=== PATIENT | female | born 1995 | race Caucasian/White ===

== ENCOUNTER 2016-09-09 17:45 | Emergency (ER) | payer SELFPAY ==
[2016-09-09 17:51] VITALS: BP 107/73; BMI 24.7
--- NOTE | 2016-09-09 18:31 | DR.GENAD ---
HPI - PCP Primary Care Physician: RAVEN - HPI Comment HPI Comment: HISTORY BELOW. - Complaint/Symptoms Chief Complaint Doctors Comments: MOUTH PAIN. PATIENT DIAGNOSE WITH GUM DISEASE WHICH IS GETTING WORSE, SOB TODAY AND SHAKY. NO FEVER. TRISMUS NOTED BUT RESOVED. Chief Complaint:: PT. C/O MOUTH PAIN X 2 WEEKS. PT. C/O SHORTNESS OF BREATH, SHAKINESS, AND HEADACHES. PT. SAYS THAT HER FACE WAS SWOLLEN LAST SATURDAY BUT IT THEN SUBSIDED. PT. ALSO SAYS THAT SHE WAS HAVING DIFFICULTY OPENING HER MOUTH AT ONE POINT. - Nurses notes reviewed Nurses Notes Review: Yes - Source History Provided: Patient - Mode of Arrival Mode of Arrival: Ambulatory - Timing Onset of Chief Complaint: 08/26/16 Came on: Gradually - Duration Duration: Constant Duration: Weeks - Severity Severity: Moderate PMH - PMH Past Medical History: No Past Surgical History: No Surgical History: No History - Family History History of Family Medical Conditions: No - Social History Does patient currently use any type of tobacco product: No Have you used tobacco products in the last 12 months: No Type of Tobacco Use: None Does any household member use tobacco: No Alcohol Use: None Do you use any recreational Drugs:: No Lives With: Spouse Lives Where: Home - infectious screening In the last 2 months have you had wt loss of >10#?: NO Have you had fever, night sweats or hemotysis?: No Have you traveled outside the country in the last 6 months?: No Isolation: Standard ROS - Review of Systems Constitutional: No Symptoms Reported Eyes: No Symptoms Reported ENTM: Mouth Swelling. negative: Loose Teeth (GUM SWOLLEN AND TENDER.) Respiratoy: Short of Breath Cardiovascular: No Symptoms Reported Gastrointestinal/Abdominal: No Symptoms Reported Genitourinary: No Symptoms Reported Neurological: Headache Musculoskeletal: No Symptoms Reported Integumentary: No Symptoms Reported Hematologic/Lymphatic: No Symptoms Reported Endocrine: No Symptoms Reported All Other Systems: Reviewed and Negative PE - Vital Signs Vitals: Temperature 98.2 F Pulse Rate 99 Respiratory Rate 17 Blood Pressure [Right Arm] 127/72 Blood Pressure 107/73 O2 Sat by Pulse Oximetry 98 - General Limitations: No Limitations - Head Head Exam: Normal Inspection - Eyes Eye exam: Normal Appearance - ENT ENT Exam: Normal External Ear Exam External Ear Exam: Normal External Inspection TM/Canal Exam: Bilateral Normal Nose Exam: Normal Nose Exam Mouth Exam: Other (GUM SWOLLEN AND RED. MULTIPLE GUMS.). negative: Trismus Throat Exam: Normal Inspection - Neck Neck Exam: Normal Inspection - Chest Chest Inspection: Normal Inspection - Respiratory Respiratory Exam: Normal Lung Sounds Bilat Respiratory Exam: Bilateral Clear to Auscultation - Cardiovascular Cardiovascular Exam: Regular Rate, Normal Rhythm, Normal Heart Sounds - Abdominal Exam Abdominal Exam: Normal Inspection - Extremities Extremities Exam: Normal Inspection - Back Back Exam: Normal Inspection - Neurologic Neurological Exam: Alert, Oriented X3 - Psychiatric Psychiatric Exam: Normal Affect, Normal Mood - Skin Skin Exam: Normal Color [facility] [place] - Additional Information Additional Information Obtained From: Family - Differential Diagnosis Differential Diagnosis: DENTAL PAIN, GINGIVITIS Course - Education/Counseling Education/Counseling: Patient, Family, Education Educated On: Diagnosis, Needs for Follow Up - Diagnosis Discharge Problem: Pain, dental, Gingivitis - Discharge Plan Disposition: HOME, SELF-CARE Condition: Stable Prescriptions: Amoxicillin [Amoxil 875 mg] 875 mg PO BID #20 tab Ibuprofen [MOTRIN TAB 600 MG *] 600 mg PO TID PRN #20 tab PRN Reason: Pain/Inflammation - Follow ups/Referrals Follow ups/Referrals: Cindy CARBAJAL [Primary Care Provider] - 3 days - Instructions Instructions: Dental Pain, [id number], Gingivitis, [id number] Additional Instructions: RETURN TO ED IF WORSE.
[2016-09-09] MEDS ORDERED: AMOXIL CAP 500 MG PO ONE ×2 (18:34→19:09)
[2016-09-09] MEDS ORDERED: MOTRIN TAB 600 MG PO ONE ×2 (18:36→19:09)
== END 2016-09-09 19:14 | disposition home or self-care (01) ==
LOC: ER 17:56
DX: K05.10 Chronic gingivitis, plaque induced (principal); K08.89 Other specified disorders of teeth and supporting structures
CPT/HCPCS: 99282